=== PATIENT | female | born 1935 | race Caucasian/White ===

== ENCOUNTER 2016-08-19 11:00 | Emergency (ER) | payer MEDICARE, BC ==
[~2016-08-19 11:00] MED LIST: ACETAMINOPHEN-1 EAC3 PO; ACIPHEX20 MG; ADULT ASPIRIN81 MG; ALBUTEROL17 GM; ALBUTEROL17 GM INH; ALDACTONE25 M1 PO; ALDACTONE25 MG PO; ALOE VERA1 CAP PO; ALPHA LIPOIC A100 MG PO; AMBIEN CR6.25 MG/BO PO; AMBIEN10 M1 PO; AMBIEN10 MG; AMBIEN10 MG PO; AMBIEN5 MG; AMOXICILLIN; AMOXIL500 MG; AMOXIL500 MG PO; ARMOUR THYROID15 M1 PO; ASPIR 8181 MG PO; ASPIR-LOW81 MG PO; ASPIRIN EC81 M1 PO; ATENOLOL; ATENOLOL50 MG; AUGMENTIN 875-11 TAB; AUGMENTIN875 MG PO; AVANDIA8 MG; BACTRIM DS TABL1 TAB PO; BETAPACE80 M2 PO; BYSTOLIC5 MG PO; CALCIUM 1,2001 EACH PO; CALCIUM 600 +1 EACH PO; CALCIUM 600 MG1 EACH PO; CALCIUM/VIT D PO; CALCIUM600 MG; CELEXA20 MG; CENTRUM SILVER1 TA; CIPRO500 MG; CIPRO750 MG; COLACE100 M1 PO; COLACE100 MG; COLACE100 MG PO; CORTEF; COSOPT EYE DROP10 ML LEFT EYE; COUMADIN2 MG PO; COUMADIN3 MG PO; COUMADIN6 M1 PO; COUMADIN6 MG; COUMADIN6 MG PO; COZAAR25 MG; COZAAR50 MG; CRESTOR10 MG PO; CYMBALTA30 MG; DARVOCET-N 1001 EACH PO; DARVOCET-N 1001 TAB; DURAGESIC1 PATCH .7; DURAGESIC1 PATCH .7 TOP; DYAZIDE 37.5/251 CAP; ELAVIL25 MG; EQL FISH OIL 1,1 CA1 PO; EYE; FISH OIL 1,0001 CA PO; FLORA Q PO; FLORINEF ACETA0.1 MG; GABAPENTIN600 MG; GLUCOSAMINE CH1 EAC2 PO; GLUCOSAMINE H1500 MG PO; GLUCOSAMINE500 MG; H; HAIR, SKIN & N1 EACH PO; HYDROCODONE; HYDROCODONE/APA1 TAB PO; IBS PO; IMDUR30 MG; IMDUR30 MG PO; IMDUR60 MG PO; IMODIUM; ISOSORBIDE MONO30 M4 PO; K-DUR10 MEQ; K-DUR20 MEQ; K-DUR20 MEQ/TA1 NG; K-DUR20 MEQ/TA1 PO; KEFLEX500 M2 PO; KEFLEX500 MG PO; LANTUS SOL100 UNIT/1 SC; LANTUS100 U/ML; LANTUS100 U/ML SC; LASIX20 MG; LASIX20 MG PO; LASIX40 M1 PO; LASIX40 MG; LASIX40 MG PO; LEVAQUIN250 MG PO; LEVAQUIN500 MG; LEVAQUIN500 MG PO; LEVAQUIN750 MG; LEVAQUIN750 MG PO; LISINOPRIL2.5 MG PO; LOVENOX40 MG/0.4 SQ; MACROBID 100 M100 M1 PO; MACROBID 100 M100 MG; MACROBID 100 M100 MG PO; MAGNESIUM OXID400 M1 PO; METAMUCIL1 EACH PO; METAMUCIL1 PKT PO; MICRO-K 1010 MEQ; MIRALAX17 G1 PO; MS CONTIN30 MG; MUCINEX600 MG; MULTI VITAMIN1 EAC1 PO; MULTIVITAMIN1 TAB PO; NEURONTIN100 MG PO; NEURONTIN300 M1 PO; NEURONTIN300 MG; NEURONTIN300 MG PO; NEURONTIN600 MG; NIASPAN1000 MG; NORCO 5/325 TAB1 TAB; NORCO 5/325 TAB1 TAB PO; NORVASC10 MG; NORVASC10 MG PO; NORVASC2.5 MG; NORVASC2.5 MG PO; NORVASC5 M1 PO; NORVASC5 MG; NYSTATIN25 GM TP; OSTEO BI-FLEX1 EAC1 PO; OXYCODONE/APAP; OXYCONTIN10 M1 PO; PAMELOR10 MG PO; PERCOCET 10/31 UDTAB PO; PERCOCET 5/3251 TAB PO; PHENERGAN VC W120 ML; PHENERGAN W/CO120 ML PO; PLAVIX75 MG; PLAVIX75 MG PO; PRILOSEC20 MG; PRILOSEC20 MG PO; PROBIOTIC1 EA10 PO; PROBIOTIC1 EACH PO; PROTONIX; PYRIDIUM200 MG; PYRIDIUM200 MG PO; RANEXA500 M1 PO; REGLAN5 M1 PO; SENOKOT-S TABLE1 TAB PO; SOTALOL PO; SOTALOL80 MG PO; TENORMIN100 MG; TENORMIN50 MG; TIMOPTIC XE; TIMOPTIC2.5 M; TIMOPTIC2.5 ML; TRAMADOL HCL50 M2 PO; TRENTAL400 MG; TRIAMTERENE HCT; TRIAMTERENE-HCT1 TAB; TRICOR145 MG; TYLENOL #31 TA1 PO; TYLENOL #31 TA2 PO; TYLENOL W/CODEI1 TAB PO; TYLENOL325 MG; VALIUM5 MG; VASOTEC; VASOTEC2.5 MG PO; VASOTEC5 MG; VASOTEC5 MG PO; VICODIN 5/500 T1 TAB; VICODIN 5/500 T1 TAB PO; VITAMIN A; VITAMIN B121000 MCG PO; VITAMIN D; VITAMIN D31000 UNIT PO; VITAMIN D5000 UNIT PO; VITAMIN E; WELCHOL625 MG; ZANTAC15 PO; ZANTAC150 M1 PO; ZEBETA10 MG; ZEBETA10 MG PO; ZEBETA5 M2 PO; ZEBETA5 MG; ZEBETA5 MG PO; ZEGERID 40 MG C1 CAP; ZITHROMAX250MG Z-PAK; ZITHROMAX250MG Z-PAK PO; ZOCOR; ZOCOR40 MG; ZOFRAN ODT4 MG/UDTAB PO; [UNRECOGNIZED DRUG - CODE] PO; [UNRECOGNIZED DRUG - OTHER]; [UNRECOGNIZED DRUG - OTHER]; [UNRECOGNIZED DRUG - OTHER]; [UNRECOGNIZED DRUG - OTHER]; [UNRECOGNIZED DRUG - OTHER] PO; [UNRECOGNIZED DRUG - OTHER] PO; [UNRECOGNIZED DRUG - OTHER] PO; [UNRECOGNIZED DRUG - OTHER] PO
[2016-08-19] MEDS ORDERED: NORVASC5 M2 PO (11:48)
[2016-08-19] MEDS ORDERED: TYLENOL WITH C1 EACH PO (11:49)
[2016-08-19 12:21] LABS: BASO % 0.5 % (0-2); BASO ABSOLUTE COUNT 0.1 tho/cmm (0.0-0.2); EOS % 2.4 % (0-7); EOSINOPHIL ABSOLUTE COUNT 0.3 tho/cmm (0.0-0.7); HCT-HEMATOCRIT 40.4 % (34.0-49.0); HGB-HEMOGLOBIN 14.1 gm/dl (12.0-15.5); IMMATURE GRANULOCYTES ABSOLUTE 0.04 tho/cmm (0-0.03); IMMATURE GRANULOCYTES PERCENT 0.4 % (0-0.3); LYMPH % 27.3 % (20-45); LYMPH ABSOLUTE COUNT 3.1 tho/cmm (0.8-4.5); MCH (MEAN CORPUSCULAR HGB) 31.2 pg (28.0-32.0); MCHC MEAN CORPUSCULAR HGB CONC 34.9 % (32.0-36.0); MCV (MEAN CELL VOLUME) 89.4 fl (82.0-96.0); MEAN PLATELET VOLUME 11.1 cmc (9.4-12.4); MONO % 9.8 % (0-12); MONOCYTE ABSOLUTE COUNT 1.1 tho/cmm (0.0-1.2); NEUTROPHIL ABSOLUTE COUNT 6.8 tho/cmm (1.6-8.0); NEUTROPHIL-AUTOMATED 6.8 tho/cmm (1.6-8.0); NEUTROPHILS % 59.6 % (40-80); PLATELET COUNT 210 tho/cmm (150-450); RED BLOOD COUNT 4.52 mil/cmm (4.00-5.20); RED CELL DISTRIBUTION WIDTH 12.7 % (12.4-16.4); WHITE BLOOD COUNT 11.3 tho/cmm (4.0-10.0)
[2016-08-19 12:36] LABS: ALB/GLOB RATIO 0.6 (0.8-2.0); ALBUMIN 2.8 g/dl (3.5-5.0); ALKALINE PHOSPHATASE 96 U/L (33-138); ALT/SGPT 17 U/L (12-78); BILIRUBIN,TOTAL 0.5 mg/dl (0-1.5); BLOOD UREA NITROGEN 32 mg/dl (6-24); CALCIUM 9.1 mg/dl (8.5-10.5); CARBON DIOXIDE-VENOUS 27 mmol/L (22-32); CHLORIDE 104 mmol/l (96-110); CREATININE 1.79 mg/dl (0.50-1.10); GLUCOSE 323 mg/dL (70-110); LIPASE 148 U/L (73-393); SODIUM 138 mmol/L (135-145); eGFR VALUE FOR BLACK 31 mL/Min
[2016-08-19 12:42] LABS: ANION GAP 12 mmol/L (0-20); AST/SGOT 28 U/L (10-40); POTASSIUM 4.6 mmol/L (3.7-5.1)
[2016-08-19] MEDS ORDERED: LANTUS SOL100 UNIT/1 SC (12:51)
[2016-08-19] MEDS ORDERED: NORCO 5-325 TA1 EACH PO (12:58)
[2016-08-19] MEDS ORDERED: ATIVAN0.5 M1 PO ×2 (12:59→13:01)
[2016-08-19] MEDS ORDERED: BENTYL10 M1 PO (13:01)
[2016-08-19 13:23] LABS: URINE BILIRUBIN NEGATIVE (NEG); URINE BLOOD MODERATE (NEG); URINE GLUCOSE (UA) MODERATE (NEG); URINE KETONE NEGATIVE (NEG); URINE LEUKOCYTE ESTERASE POSITIVE (NEG); URINE NITRITE NEGATIVE (NEG); URINE PROTEIN LARGE (NEG)
[2016-08-19 13:32] LABS: URINE COLOR YELLOW
[2016-08-19 13:33] LABS: URINE APPEARANCE HAZY
[2016-08-19 13:35] LABS: URINE RBC RARE /[HPF] (0-5)
[2016-08-19 13:36] LABS: URINE BACTERIA 3+
[2016-08-19] MEDS ORDERED: MACROBID 100 M100 M1 PO (15:02)
[2016-10-06] MEDS ORDERED: NEURONTIN300 M1 PO (14:12)
[2016-10-06] MEDS ORDERED: RANEXA500 M1 PO (14:14)
== END 2016-08-19 15:16 ==
LOC: EDMED 11:00
PROVIDERS: Physician Assistant
DX: N39.0 Urinary tract infection, site not specified (principal); E11.22 Type 2 diabetes mellitus with diabetic chronic kidney disease; I13.0 Hypertensive heart and chronic kidney disease with heart failure and stage 1 through stage 4 chronic kidney disease, or unspecified chronic kidney disease; N18.9 Chronic kidney disease, unspecified; I25.10 Atherosclerotic heart disease of native coronary artery without angina pectoris; H40.9 Unspecified glaucoma; Z90.49 Acquired absence of other specified parts of digestive tract; Z86.711 Personal history of pulmonary embolism; Z79.4 Long term (current) use of insulin; Z79.899 Other long term (current) drug therapy
CPT/HCPCS: J7030

== ENCOUNTER 2016-10-07 06:33 | Day surgery (SDC) | payer MEDICARE, BC ==
[~2016-10-07 06:33] MED LIST changes: +ATIVAN0.5 M1 PO; +BENTYL10 M1 PO; +NORCO 5-325 TA1 EACH PO; +NORVASC5 M2 PO; +TYLENOL WITH C1 EACH PO
[2016-10-07 07:49] LABS: BASO % 0.5 % (0-2); BASO ABSOLUTE COUNT 0.1 tho/cmm (0.0-0.2); EOS % 2.1 % (0-7); EOSINOPHIL ABSOLUTE COUNT 0.3 tho/cmm (0.0-0.7); HCT-HEMATOCRIT 35.9 % (34.0-49.0); HGB-HEMOGLOBIN 12.1 gm/dl (12.0-15.5); IMMATURE GRANULOCYTES ABSOLUTE 0.05 tho/cmm (0-0.03); IMMATURE GRANULOCYTES PERCENT 0.4 % (0-0.3); LYMPH % 20.9 % (20-45); LYMPH ABSOLUTE COUNT 2.8 tho/cmm (0.8-4.5); MCH (MEAN CORPUSCULAR HGB) 30.3 pg (28.0-32.0); MCHC MEAN CORPUSCULAR HGB CONC 33.7 % (32.0-36.0); MEAN PLATELET VOLUME 10.7 cmc (9.4-12.4); MONO % 9.6 % (0-12); MONOCYTE ABSOLUTE COUNT 1.3 tho/cmm (0.0-1.2); NEUTROPHIL ABSOLUTE COUNT 9.1 tho/cmm (1.6-8.0); NEUTROPHIL-AUTOMATED 9.1 tho/cmm (1.6-8.0); NEUTROPHILS % 66.5 % (40-80); PLATELET COUNT 283 tho/cmm (150-450); RED BLOOD COUNT 3.99 mil/cmm (4.00-5.20); RED CELL DISTRIBUTION WIDTH 12.7 % (12.4-16.4); WHITE BLOOD COUNT 13.6 tho/cmm (4.0-10.0)
[2016-10-07 08:00] LABS: ANION GAP 17 mmol/L (0-20); BLOOD UREA NITROGEN 33 mg/dl (6-24); CARBON DIOXIDE-VENOUS 23 mmol/L (22-32); CHLORIDE 104 mmol/l (96-110); CREATININE 2.46 mg/dl (0.50-1.10); GLUCOSE 212 mg/dL (70-110); POTASSIUM 4.1 mmol/L (3.7-5.1); SODIUM 140 mmol/L (135-145); eGFR VALUE FOR BLACK 21 mL/Min
[2016-10-07 08:21] LABS: PROTHROMBIN TIME 11.7 SECONDS (9.0-13.6)
== END 2016-10-07 11:15 ==
LOC: ENDOS 06:33 → SHSA 06:34 → ENDOS 07:50
PROVIDERS: Anesthesiology
PROC: 0DB98ZX Excision of Duodenum, Via Natural or Artificial Opening Endoscopic, Diagnostic (ICD-10-PCS; principal; 2016-10-07)
PROC: 0DB78ZX Excision of Stomach, Pylorus, Via Natural or Artificial Opening Endoscopic, Diagnostic (ICD-10-PCS; 2016-10-07)
PROC: 0DJD8ZZ Inspection of Lower Intestinal Tract, Via Natural or Artificial Opening Endoscopic (ICD-10-PCS; 2016-10-07)
DX: K57.30 Diverticulosis of large intestine without perforation or abscess without bleeding (principal); I25.10 Atherosclerotic heart disease of native coronary artery without angina pectoris; E66.9 Obesity, unspecified; M17.9 Osteoarthritis of knee, unspecified; E11.22 Type 2 diabetes mellitus with diabetic chronic kidney disease; I13.0 Hypertensive heart and chronic kidney disease with heart failure and stage 1 through stage 4 chronic kidney disease, or unspecified chronic kidney disease; N18.3 Chronic kidney disease, stage 3 (moderate); I50.32 Chronic diastolic (congestive) heart failure; Z79.4 Long term (current) use of insulin; N39.0 Urinary tract infection, site not specified; Z90.49 Acquired absence of other specified parts of digestive tract; F32.9 Major depressive disorder, single episode, unspecified; Z98.49 Cataract extraction status, unspecified eye; Z79.01 Long term (current) use of anticoagulants; Z98.890 Other specified postprocedural states; Z79.891 Long term (current) use of opiate analgesic; Z95.1 Presence of aortocoronary bypass graft; Z80.0 Family history of malignant neoplasm of digestive organs; Z68.29 Body mass index [BMI] 29.0-29.9, adult

== ENCOUNTER 2016-10-19 22:19 | Inpatient (IN) | payer MEDICARE, BC ==
[2016-10-19 23:07] LABS: BASO % 0.6 % (0-2); BASO ABSOLUTE COUNT 0.1 tho/cmm (0.0-0.2); EOS % 1.1 % (0-7); EOSINOPHIL ABSOLUTE COUNT 0.1 tho/cmm (0.0-0.7); HCT-HEMATOCRIT 38.6 % (34.0-49.0); IMMATURE GRANULOCYTES ABSOLUTE 0.03 tho/cmm (0-0.03); IMMATURE GRANULOCYTES PERCENT 0.2 % (0-0.3); LYMPH % 21.3 % (20-45); LYMPH ABSOLUTE COUNT 2.7 tho/cmm (0.8-4.5); MCH (MEAN CORPUSCULAR HGB) 30.1 pg (28.0-32.0); MCHC MEAN CORPUSCULAR HGB CONC 33.7 % (32.0-36.0); MCV (MEAN CELL VOLUME) 89.4 fl (82.0-96.0); MONO % 9.7 % (0-12); MONOCYTE ABSOLUTE COUNT 1.2 tho/cmm (0.0-1.2); NEUTROPHIL ABSOLUTE COUNT 8.5 tho/cmm (1.6-8.0); NEUTROPHIL-AUTOMATED 8.5 tho/cmm (1.6-8.0); NEUTROPHILS % 67.1 % (40-80); PLATELET COUNT 311 tho/cmm (150-450); RED BLOOD COUNT 4.32 mil/cmm (4.00-5.20); RED CELL DISTRIBUTION WIDTH 12.7 % (12.4-16.4); WHITE BLOOD COUNT 12.7 tho/cmm (4.0-10.0)
[2016-10-19 23:13] LABS: PROTHROMBIN TIME 35.8 SECONDS (9.0-13.6)
[2016-10-19 23:37] LABS: ALB/GLOB RATIO 0.5 (0.8-2.0); ALBUMIN 2.6 g/dl (3.5-5.0); ALKALINE PHOSPHATASE 96 U/L (33-138); ALT/SGPT 12 U/L (12-78); ANION GAP 11 mmol/L (0-20); AST/SGOT 12 U/L (10-40); BILIRUBIN,TOTAL 0.4 mg/dl (0-1.5); BLOOD UREA NITROGEN 27 mg/dl (6-24); CALCIUM 8.3 mg/dl (8.5-10.5); CARBON DIOXIDE-VENOUS 24 mmol/L (22-32); CHLORIDE 104 mmol/l (96-110); CREATININE 1.78 mg/dl (0.50-1.10); POTASSIUM 4.3 mmol/L (3.7-5.1); SODIUM 135 mmol/L (135-145); eGFR VALUE FOR BLACK 31 mL/Min
[2016-10-19 23:39] LABS: PROCALCITONIN 0.07 ng/ml (0.05-0.09)
[2016-10-19 23:40] LABS: GLUCOSE 453 mg/dL (70-110)
[2016-10-19 23:48] LABS: URINE BILIRUBIN NEGATIVE (NEG); URINE BLOOD MODERATE (NEG); URINE GLUCOSE (UA) LARGE (NEG); URINE KETONE NEGATIVE (NEG); URINE LEUKOCYTE ESTERASE NEGATIVE (NEG); URINE NITRITE NEGATIVE (NEG); URINE PROTEIN MODERATE (NEG); URINE SPECIFIC GRAVITY 1.015 (1.003-1.030)
[2016-10-19 23:52] LABS: URINE APPEARANCE HAZY; URINE COLOR YELLOW
[2016-10-19 23:58] LABS: URINE AMORPHOUS 2+; URINE EPITHELIAL CELLS RARE /[HPF] (0-10); URINE RBC 0 /[HPF] (0-5); URINE WBC 0 /[HPF] (0-5)
[2016-10-20 03:19] LABS: BASO % 0.7 % (0-2); BASO ABSOLUTE COUNT 0.1 tho/cmm (0.0-0.2); EOSINOPHIL ABSOLUTE COUNT 0.1 tho/cmm (0.0-0.7); HCT-HEMATOCRIT 32.4 % (34.0-49.0); HGB-HEMOGLOBIN 10.9 gm/dl (12.0-15.5); IMMATURE GRANULOCYTES ABSOLUTE 0.02 tho/cmm (0-0.03); IMMATURE GRANULOCYTES PERCENT 0.2 % (0-0.3); LYMPH % 25.7 % (20-45); LYMPH ABSOLUTE COUNT 2.5 tho/cmm (0.8-4.5); MCH (MEAN CORPUSCULAR HGB) 30.2 pg (28.0-32.0); MCHC MEAN CORPUSCULAR HGB CONC 33.6 % (32.0-36.0); MCV (MEAN CELL VOLUME) 89.8 fl (82.0-96.0); MEAN PLATELET VOLUME 10.5 cmc (9.4-12.4); MONO % 10.6 % (0-12); NEUTROPHIL ABSOLUTE COUNT 5.9 tho/cmm (1.6-8.0); NEUTROPHIL-AUTOMATED 5.9 tho/cmm (1.6-8.0); NEUTROPHILS % 61.8 % (40-80); PLATELET COUNT 276 tho/cmm (150-450); RED BLOOD COUNT 3.61 mil/cmm (4.00-5.20); RED CELL DISTRIBUTION WIDTH 12.7 % (12.4-16.4); WHITE BLOOD COUNT 9.6 tho/cmm (4.0-10.0)
[2016-10-20 03:31] LABS: C-REACTIVE PROTEIN 4.7 mg/dl (0-0.9); MAGNESIUM 1.2 mg/dl (1.8-2.6); PHOSPHOROUS 2.3 mg/dl (2.5-4.9)
[2016-10-20 03:34] LABS: TSH-THYROID STIMULATING HORM. 0.71 uIU/ml (0.40-3.80)
[2016-10-20 05:30] LABS: BASO % 0.6 % (0-2); BASO ABSOLUTE COUNT 0.1 tho/cmm (0.0-0.2); EOS % 1.3 % (0-7); EOSINOPHIL ABSOLUTE COUNT 0.1 tho/cmm (0.0-0.7); HCT-HEMATOCRIT 35.9 % (34.0-49.0); HGB-HEMOGLOBIN 11.9 gm/dl (12.0-15.5); IMMATURE GRANULOCYTES ABSOLUTE 0.03 tho/cmm (0-0.03); IMMATURE GRANULOCYTES PERCENT 0.3 % (0-0.3); LYMPH % 30.2 % (20-45); LYMPH ABSOLUTE COUNT 3.1 tho/cmm (0.8-4.5); MCH (MEAN CORPUSCULAR HGB) 29.7 pg (28.0-32.0); MCHC MEAN CORPUSCULAR HGB CONC 33.1 % (32.0-36.0); MCV (MEAN CELL VOLUME) 89.5 fl (82.0-96.0); MEAN PLATELET VOLUME 10.7 cmc (9.4-12.4); MONO % 11.2 % (0-12); MONOCYTE ABSOLUTE COUNT 1.1 tho/cmm (0.0-1.2); NEUTROPHIL ABSOLUTE COUNT 5.7 tho/cmm (1.6-8.0); NEUTROPHIL-AUTOMATED 5.7 tho/cmm (1.6-8.0); NEUTROPHILS % 56.4 % (40-80); PLATELET COUNT 291 tho/cmm (150-450); RED BLOOD COUNT 4.01 mil/cmm (4.00-5.20); RED CELL DISTRIBUTION WIDTH 12.8 % (12.4-16.4); WHITE BLOOD COUNT 10.1 tho/cmm (4.0-10.0)
[2016-10-20 05:31] LABS: INR 3.1 INR (0.9-1.1); PROTHROMBIN TIME 37.8 SECONDS (9.0-13.6)
[2016-10-20 05:45] LABS: ALB/GLOB RATIO 0.5 (0.8-2.0); ALBUMIN 2.4 g/dl (3.5-5.0); ALKALINE PHOSPHATASE 89 U/L (33-138); ALT/SGPT 12 U/L (12-78); ANION GAP 10 mmol/L (0-20); AST/SGOT 11 U/L (10-40); BILIRUBIN,TOTAL 0.3 mg/dl (0-1.5); BLOOD UREA NITROGEN 23 mg/dl (6-24); CALCIUM 7.9 mg/dl (8.5-10.5); CARBON DIOXIDE-VENOUS 25 mmol/L (22-32); CHLORIDE 110 mmol/l (96-110); CREATININE 1.48 mg/dl (0.50-1.10); GLUCOSE 307 mg/dL (70-110); POTASSIUM 3.7 mmol/L (3.7-5.1); SODIUM 141 mmol/L (135-145); eGFR VALUE FOR BLACK 39 mL/Min
[2016-10-20 06:11] LABS: PROCALCITONIN 0.08 ng/ml (0.05-0.09)
[2016-10-20] MEDS ORDERED: NORVASC5 M2 PO (10:37)
[2016-10-20] MEDS ORDERED: BENTYL10 M1 PO (10:41)
[2016-10-20] MEDS ORDERED: CHOLESTYRAMI239.4 G1 PO (10:48)
[2016-10-20] MEDS ORDERED: NOVOLOG FL100 UNIT/2 SC (11:03)
[2016-10-20 14:27] LABS: BASO % 0.4 % (0-2); BASO ABSOLUTE COUNT 0.1 tho/cmm (0.0-0.2); EOS % 2.4 % (0-7); EOSINOPHIL ABSOLUTE COUNT 0.3 tho/cmm (0.0-0.7); HCT-HEMATOCRIT 36.9 % (34.0-49.0); HGB-HEMOGLOBIN 12.5 gm/dl (12.0-15.5); IMMATURE GRANULOCYTES ABSOLUTE 0.03 tho/cmm (0-0.03); IMMATURE GRANULOCYTES PERCENT 0.3 % (0-0.3); LYMPH ABSOLUTE COUNT 2.1 tho/cmm (0.8-4.5); MCH (MEAN CORPUSCULAR HGB) 30.3 pg (28.0-32.0); MCHC MEAN CORPUSCULAR HGB CONC 33.9 % (32.0-36.0); MCV (MEAN CELL VOLUME) 89.6 fl (82.0-96.0); MEAN PLATELET VOLUME 10.8 cmc (9.4-12.4); MONO % 10.1 % (0-12); MONOCYTE ABSOLUTE COUNT 1.2 tho/cmm (0.0-1.2); NEUTROPHIL ABSOLUTE COUNT 7.9 tho/cmm (1.6-8.0); NEUTROPHIL-AUTOMATED 7.9 tho/cmm (1.6-8.0); NEUTROPHILS % 68.8 % (40-80); PLATELET COUNT 302 tho/cmm (150-450); RED BLOOD COUNT 4.12 mil/cmm (4.00-5.20); WHITE BLOOD COUNT 11.4 tho/cmm (4.0-10.0)
[2016-10-20 14:32] LABS: INR 3.5 INR (0.9-1.1); PROTHROMBIN TIME 41.7 SECONDS (9.0-13.6)
--- NOTE | 2016-10-20 19:12 | NUR ---
VIRTUAL CARE NOTE: PT. SLEEPING ASSESSMENT DEFERRED.
[2016-10-21 06:05] LABS: BASO % 0.6 % (0-2); BASO ABSOLUTE COUNT 0.1 tho/cmm (0.0-0.2); EOS % 3.8 % (0-7); EOSINOPHIL ABSOLUTE COUNT 0.4 tho/cmm (0.0-0.7); HCT-HEMATOCRIT 32.2 % (34.0-49.0); HGB-HEMOGLOBIN 10.8 gm/dl (12.0-15.5); IMMATURE GRANULOCYTES ABSOLUTE 0.03 tho/cmm (0-0.03); IMMATURE GRANULOCYTES PERCENT 0.3 % (0-0.3); LYMPH % 29.3 % (20-45); LYMPH ABSOLUTE COUNT 3.2 tho/cmm (0.8-4.5); MCH (MEAN CORPUSCULAR HGB) 29.9 pg (28.0-32.0); MCHC MEAN CORPUSCULAR HGB CONC 33.5 % (32.0-36.0); MCV (MEAN CELL VOLUME) 89.2 fl (82.0-96.0); MEAN PLATELET VOLUME 10.7 cmc (9.4-12.4); MONO % 14.8 % (0-12); MONOCYTE ABSOLUTE COUNT 1.6 tho/cmm (0.0-1.2); NEUTROPHIL ABSOLUTE COUNT 5.7 tho/cmm (1.6-8.0); NEUTROPHIL-AUTOMATED 5.7 tho/cmm (1.6-8.0); NEUTROPHILS % 51.2 % (40-80); PLATELET COUNT 271 tho/cmm (150-450); RED BLOOD COUNT 3.61 mil/cmm (4.00-5.20); RED CELL DISTRIBUTION WIDTH 13.1 % (12.4-16.4)
[2016-10-21 06:13] LABS: INR 1.5 INR (0.9-1.1); PROTHROMBIN TIME 17.7 SECONDS (9.0-13.6)
[2016-10-21 06:21] LABS: ANION GAP 12 mmol/L (0-20); BLOOD UREA NITROGEN 22 mg/dl (6-24); CALCIUM 8.1 mg/dl (8.5-10.5); CARBON DIOXIDE-VENOUS 26 mmol/L (22-32); CHLORIDE 111 mmol/l (96-110); CHOLESTEROL 152 mg/dl (120-200); CREATININE 1.53 mg/dl (0.50-1.10); HDL CHOLESTEROL 31 mg/dl (40-60); LDL CHOLESTEROL 85 mg/dl (0-99); POTASSIUM 3.7 mmol/L (3.7-5.1); SODIUM 145 mmol/L (135-145); VLDL 37 mg/dl (0-30); eGFR VALUE FOR BLACK 37 mL/Min
[2016-10-21 06:27] LABS: GLUCOSE 84 mg/dL (70-110); TRIGLYCERIDES 184 mg/dl (<149)
[2016-10-22 06:48] LABS: INR 1.2 INR (0.9-1.1); PROTHROMBIN TIME 14.5 SECONDS (9.0-13.6)
[2016-10-22 06:54] LABS: BASO % 0.3 % (0-2); HCT-HEMATOCRIT 33.3 % (34.0-49.0); HGB-HEMOGLOBIN 11.2 gm/dl (12.0-15.5); IMMATURE GRANULOCYTES ABSOLUTE 0.01 tho/cmm (0-0.03); IMMATURE GRANULOCYTES PERCENT 0.2 % (0-0.3); LYMPH % 20.8 % (20-45); LYMPH ABSOLUTE COUNT 1.3 tho/cmm (0.8-4.5); MCH (MEAN CORPUSCULAR HGB) 30.1 pg (28.0-32.0); MCHC MEAN CORPUSCULAR HGB CONC 33.6 % (32.0-36.0); MCV (MEAN CELL VOLUME) 89.5 fl (82.0-96.0); MEAN PLATELET VOLUME 11.2 cmc (9.4-12.4); MONO % 1.6 % (0-12); MONOCYTE ABSOLUTE COUNT 0.1 tho/cmm (0.0-1.2); NEUTROPHIL ABSOLUTE COUNT 4.7 tho/cmm (1.6-8.0); NEUTROPHIL-AUTOMATED 4.7 tho/cmm (1.6-8.0); NEUTROPHILS % 77.1 % (40-80); PLATELET COUNT 277 tho/cmm (150-450); RED BLOOD COUNT 3.72 mil/cmm (4.00-5.20); WHITE BLOOD COUNT 6.2 tho/cmm (4.0-10.0)
[2016-10-22 06:57] LABS: BLOOD UREA NITROGEN 31 mg/dl (6-24); CALCIUM 8.2 mg/dl (8.5-10.5); CARBON DIOXIDE-VENOUS 22 mmol/L (22-32); CHLORIDE 104 mmol/l (96-110); SODIUM 136 mmol/L (135-145); eGFR VALUE FOR BLACK 29 mL/Min
[2016-10-22 07:39] LABS: ANION GAP 15 mmol/L (0-20); GLUCOSE 472 mg/dL (70-110); POTASSIUM 4.8 mmol/L (3.7-5.1)
--- NOTE | 2016-10-22 14:55 | NUR ---
VIRTUAL CARE NOTE: PT AWAKE SITTING UP IN CHAIR, VISITOR PRESENT. PT DENIES PAIN AT THIS TIME AND DOES MENTION SHE NOTICED HER VISION IS BLURRY THIS AFTERNOON, STATES SHE NOTICED IT ABOUT 30MIN AGO BUT HAS NOT MENTIONED TO NURSE. WILL DISCUSS W/ TALI DRUMMOND. PT NOT FULLY ENGAGED IN ROUND W/ VN SHE CONTINUES TO OPEN MAIL AND TALK W/ VISITOR. VN WILL CONTINUE TO MONITOR ELECTRONIC RECORD AND FOLLOW W/ PT.
--- NOTE | 2016-10-22 21:43 | NUR ---
VIRTUAL CARE NOTE: ASSESSMENT DEFERRED. PT. SLEEPING.
[2016-10-23 05:55] LABS: INR 2.1 INR (0.9-1.1); PROTHROMBIN TIME 24.6 SECONDS (9.0-13.6)
[2016-10-23 06:01] LABS: ANION GAP 14 mmol/L (0-20); CALCIUM 8.4 mg/dl (8.5-10.5); CARBON DIOXIDE-VENOUS 24 mmol/L (22-32); CHLORIDE 102 mmol/l (96-110); CREATININE 2.28 mg/dl (0.50-1.10); GLUCOSE 381 mg/dL (70-110); POTASSIUM 4.8 mmol/L (3.7-5.1); SODIUM 135 mmol/L (135-145); eGFR VALUE FOR BLACK 23 mL/Min
[2016-10-23 06:02] LABS: BLOOD UREA NITROGEN 49 mg/dl (6-24)
--- NOTE | 2016-10-23 13:52 | NUR ---
VIRTUAL CARE NOTE: PT AWAKE SITTING UP IN CHAIR, SON AT BEDSIDE. PT DENIES PAIN, SOB AT THIS TIME. PT/FAMILY DENIES QUESTIONS/CONCERNS. VN WILL CONTINUE TO MONITOR ELECTRONIC RECORD AND FOLLOW W/PT.
--- NOTE | 2016-10-23 19:09 | NUR ---
VIRTUAL CARE NOTE: ASSESSMENT DEFERRED. PT. SLEEPING.
[2016-10-24 07:03] LABS: INR 3.4 INR (0.9-1.1); PROTHROMBIN TIME 40.7 SECONDS (9.0-13.6)
[2016-10-24 07:08] LABS: ANION GAP 12 mmol/L (0-20); BLOOD UREA NITROGEN 55 mg/dl (6-24); CALCIUM 8.4 mg/dl (8.5-10.5); CARBON DIOXIDE-VENOUS 25 mmol/L (22-32); CHLORIDE 106 mmol/l (96-110); CREATININE 2.13 mg/dl (0.50-1.10); POTASSIUM 5.2 mmol/L (3.7-5.1); SODIUM 138 mmol/L (135-145); eGFR VALUE FOR BLACK 25 mL/Min
[2016-10-24 07:09] LABS: GLUCOSE 181 mg/dL (70-110)
[2016-10-25 06:12] LABS: BASO % 0.1 % (0-2); HCT-HEMATOCRIT 35.6 % (34.0-49.0); HGB-HEMOGLOBIN 12.1 gm/dl (12.0-15.5); IMMATURE GRANULOCYTES ABSOLUTE 0.28 tho/cmm (0-0.03); IMMATURE GRANULOCYTES PERCENT 1.7 % (0-0.3); LYMPH % 8.7 % (20-45); LYMPH ABSOLUTE COUNT 1.4 tho/cmm (0.8-4.5); MCH (MEAN CORPUSCULAR HGB) 30.6 pg (28.0-32.0); MCV (MEAN CELL VOLUME) 89.9 fl (82.0-96.0); MEAN PLATELET VOLUME 10.9 cmc (9.4-12.4); MONO % 2.9 % (0-12); MONOCYTE ABSOLUTE COUNT 0.5 tho/cmm (0.0-1.2); NEUTROPHIL ABSOLUTE COUNT 14.2 tho/cmm (1.6-8.0); NEUTROPHIL-AUTOMATED 14.2 tho/cmm (1.6-8.0); NEUTROPHILS % 86.6 % (40-80); PLATELET COUNT 295 tho/cmm (150-450); RED BLOOD COUNT 3.96 mil/cmm (4.00-5.20); RED CELL DISTRIBUTION WIDTH 12.8 % (12.4-16.4)
[2016-10-25 06:27] LABS: INR 2.9 INR (0.9-1.1); PROTHROMBIN TIME 34.7 SECONDS (9.0-13.6)
[2016-10-25 06:29] LABS: WHITE BLOOD COUNT 16.3 tho/cmm (4.0-10.0)
[2016-10-25 06:44] LABS: ALBUMIN 2.5 g/dl (3.5-5.0); BLOOD UREA NITROGEN 46 mg/dl (6-24); CALCIUM 8.6 mg/dl (8.5-10.5); CARBON DIOXIDE-VENOUS 26 mmol/L (22-32); CHLORIDE 109 mmol/l (96-110); GLUCOSE 235 mg/dL (70-110); PHOSPHOROUS 3.1 mg/dl (2.5-4.9); SODIUM 143 mmol/L (135-145); eGFR VALUE FOR BLACK 37 mL/Min
[2016-10-25 06:47] LABS: ANION GAP 12 mmol/L (0-20); CREATININE 1.54 mg/dl (0.50-1.10); POTASSIUM 4.4 mmol/L (3.7-5.1)
[2016-10-25 10:36] LABS: PROCALCITONIN 0.05 ng/ml (0.05-0.09)
--- NOTE | 2016-10-25 21:05 | NUR ---
VIRTUAL CARE NOTE: ASSESSMENT DEFERRED. PT. SLEEPING.
[2016-10-26 05:20] LABS: INR 2.4 INR (0.9-1.1); PROTHROMBIN TIME 28.5 SECONDS (9.0-13.6)
[2016-10-26 11:06] LABS: BASO % 0.2 % (0-2); HCT-HEMATOCRIT 36.4 % (34.0-49.0); HGB-HEMOGLOBIN 12.4 gm/dl (12.0-15.5); IMMATURE GRANULOCYTES ABSOLUTE 0.43 tho/cmm (0-0.03); IMMATURE GRANULOCYTES PERCENT 2.3 % (0-0.3); LYMPH % 9.7 % (20-45); LYMPH ABSOLUTE COUNT 1.8 tho/cmm (0.8-4.5); MCH (MEAN CORPUSCULAR HGB) 30.2 pg (28.0-32.0); MCHC MEAN CORPUSCULAR HGB CONC 34.1 % (32.0-36.0); MCV (MEAN CELL VOLUME) 88.8 fl (82.0-96.0); MEAN PLATELET VOLUME 10.9 cmc (9.4-12.4); MONO % 8.6 % (0-12); MONOCYTE ABSOLUTE COUNT 1.6 tho/cmm (0.0-1.2); NEUTROPHIL ABSOLUTE COUNT 14.8 tho/cmm (1.6-8.0); NEUTROPHIL-AUTOMATED 14.8 tho/cmm (1.6-8.0); NEUTROPHILS % 79.2 % (40-80); PLATELET COUNT 331 tho/cmm (150-450); RED CELL DISTRIBUTION WIDTH 13.1 % (12.4-16.4); WHITE BLOOD COUNT 18.7 tho/cmm (4.0-10.0)
[2016-10-26 11:18] LABS: ANION GAP 12 mmol/L (0-20); BLOOD UREA NITROGEN 47 mg/dl (6-24); CALCIUM 8.6 mg/dl (8.5-10.5); CARBON DIOXIDE-VENOUS 30 mmol/L (22-32); CHLORIDE 107 mmol/l (96-110); GLUCOSE 231 mg/dL (70-110); POTASSIUM 4.1 mmol/L (3.7-5.1); SODIUM 145 mmol/L (135-145); eGFR VALUE FOR BLACK 38 mL/Min
[2016-10-26 11:46] LABS: PROCALCITONIN 0.05 ng/ml (0.05-0.09)
[2016-10-27 05:37] LABS: BASO % 0.1 % (0-2); HCT-HEMATOCRIT 36.6 % (34.0-49.0); HGB-HEMOGLOBIN 12.2 gm/dl (12.0-15.5); IMMATURE GRANULOCYTES ABSOLUTE 0.36 tho/cmm (0-0.03); LYMPH % 15.3 % (20-45); LYMPH ABSOLUTE COUNT 2.8 tho/cmm (0.8-4.5); MCH (MEAN CORPUSCULAR HGB) 29.6 pg (28.0-32.0); MCHC MEAN CORPUSCULAR HGB CONC 33.3 % (32.0-36.0); MCV (MEAN CELL VOLUME) 88.8 fl (82.0-96.0); MEAN PLATELET VOLUME 10.9 cmc (9.4-12.4); MONO % 11.3 % (0-12); NEUTROPHIL ABSOLUTE COUNT 12.8 tho/cmm (1.6-8.0); NEUTROPHIL-AUTOMATED 12.8 tho/cmm (1.6-8.0); NEUTROPHILS % 71.3 % (40-80); PLATELET COUNT 331 tho/cmm (150-450); RED BLOOD COUNT 4.12 mil/cmm (4.00-5.20); RED CELL DISTRIBUTION WIDTH 13.2 % (12.4-16.4)
[2016-10-27 05:40] LABS: INR 2.9 INR (0.9-1.1)
[2016-10-27 05:48] LABS: PROTHROMBIN TIME 35.1 SECONDS (9.0-13.6)
[2016-10-27 05:50] LABS: ANION GAP 10 mmol/L (0-20); BLOOD UREA NITROGEN 53 mg/dl (6-24); CALCIUM 8.4 mg/dl (8.5-10.5); CARBON DIOXIDE-VENOUS 32 mmol/L (22-32); CHLORIDE 104 mmol/l (96-110); CREATININE 1.47 mg/dl (0.50-1.10); POTASSIUM 3.6 mmol/L (3.7-5.1); SODIUM 142 mmol/L (135-145); eGFR VALUE FOR BLACK 39 mL/Min
[2016-10-27 06:00] LABS: GLUCOSE 79 mg/dL (70-110)
[2016-10-27] MEDS ORDERED: IPRAT-ALBUT 0.5-3 ML INH (14:36)
[2016-10-27] MEDS ORDERED: BROVANA15 MCG/22 INH (14:36)
[2016-10-27] MEDS ORDERED: PLAVIX75 M1 PO (14:37)
[2016-10-27] MEDS ORDERED: BISOPROLOL FUMA10 M1 PO (14:38)
[2016-10-27] MEDS ORDERED: PREVALITE PACKET4 GM PO (14:38)
[2016-10-27] MEDS ORDERED: HYDRALAZINE HCL25 M1 PO (14:39)
[2016-10-27] MEDS ORDERED: ASPIRIN81 M1 PO (14:41)
[2016-10-27] MEDS ORDERED: MUCINEX600 M1 PO (14:43)
[2016-10-27] MEDS ORDERED: DELTASONE20 MG PO (14:46)
[2016-10-27] MEDS ORDERED: NOVOLOG100 UNITS/ SC ×2 (14:47→14:48)
[2016-10-27] MEDS ORDERED: LEVEMIR100 UNITS/ SC ×2 (14:47→14:48)
[2016-10-27] MEDS ORDERED: GLUCAGON HCL1 MG SC (14:48)
== END 2016-10-27 16:25 | DRG 871 ==
LOC: EDMED 22:19 → EMR2 10-20 01:31 → 5WD 10-20 02:33
PROVIDERS: Emergency Medicine; Family Medicine; Internal Medicine; Physician Assistant; Registered Nurse; Surgery; ADMIT Internal Medicine
PROC: 4A023N7 Measurement of Cardiac Sampling and Pressure, Left Heart, Percutaneous Approach (ICD-10-PCS; principal; 2016-10-20)
PROC: B2151ZZ Fluoroscopy of Left Heart using Low Osmolar Contrast (ICD-10-PCS; 2016-10-20)
PROC: B2111ZZ Fluoroscopy of Multiple Coronary Arteries using Low Osmolar Contrast (ICD-10-PCS; 2016-10-20)
PROC: B2131ZZ Fluoroscopy of Multiple Coronary Artery Bypass Grafts using Low Osmolar Contrast (ICD-10-PCS; 2016-10-20)
DX: A41.9 Sepsis, unspecified organism (principal); I21.4 Non-ST elevation (NSTEMI) myocardial infarction; N17.9 Acute kidney failure, unspecified; J18.9 Pneumonia, unspecified organism; N18.3 Chronic kidney disease, stage 3 (moderate); J44.0 Chronic obstructive pulmonary disease with (acute) lower respiratory infection; J44.1 Chronic obstructive pulmonary disease with (acute) exacerbation; I12.9 Hypertensive chronic kidney disease with stage 1 through stage 4 chronic kidney disease, or unspecified chronic kidney disease
CPT/HCPCS: C1769; C1887; C1894; C8929; J0360; J0456; J0696; J1644; J1815; J1940; J2250; J2543; J2920; J2930; J3010; J3370; J3430; J7030; J7050; J7512; P9612; Q9967